=== PATIENT | male | born 1945 | race American Indian/Alaskan Native ===

== ENCOUNTER 2017-12-12 06:06 | Observation (INO) | payer MEDICARE ==
[2017-12-07 12:18] LABS: Basophils % (Auto) 0.7 % (0.0-1.8); Eosinophils % (Auto) 0.4 % (0.0-4.3); Hemoglobin 14.2 gm/dl (11.8-15.2); Lymphocytes # (Auto) 1.3 K/mm3 (1.2-5.4); Lymphocytes % (Auto) 24.4 % (13.4-35.0); Mean Corpuscular HGB Conc 34 % (32-34); Mean Corpuscular Hemoglobin 31 pg (28-32); Mean Corpuscular Volume 90 fl (84-94); Monocytes # (Auto) 0.5 K/mm3 (0.0-0.8); Monocytes % (Auto) 8.8 % (0.0-7.3); Platelet Count 196 K/mm3 (140-440); Red Blood Count 4.66 M/mm3 (3.65-5.03); Red Cell Distribution Width 13.6 % (13.2-15.2)
[2017-12-07 12:28] LABS: INR 0.94 (0.87-1.13)
[2017-12-07 12:29] LABS: Partial Thromboplastin Time 28.7 Sec. (24.2-36.6)
[2017-12-07 12:44] LABS: Alanine Aminotransferase 49 units/L (7-56); Albumin 4.3 g/dL (3.9-5); BUN/Creatinine Ratio 20; Blood Urea Nitrogen 18 mg/dL (9-20); Calcium 9.7 mg/dL (8.4-10.2); Hemolysis Index 7
[2017-12-12] MEDS ORDERED: NACL BACTERIOSTATIC INFILTRATI ONE (06:47)
[2017-12-12] MEDS ORDERED: ANCEF/STERILE WATER 2 GM/20 ML IV NR (07:00)
--- NOTE | 2017-12-12 07:14 | Anesthesia Consultation ---
Anesthesia Consult and Med Hx Date of service: 12/12/17 - Airway Anesthetic Teeth Evaluation: Partials ROM Head & Neck: Adequate Mental/Hyoid Distance: Adequate Mallampati Class: Class II Intubation Access Assessment: Probably Good - Pulmonary Exam CTA: Yes - Cardiac Exam Cardiac Exam: RRR - Pre-Operative Health Status ASA Pre-Surgery Classification: ASA3 Proposed Anesthetic Plan: General - Pulmonary Hx Smoking: Yes (STOPPED 1978) Hx Sleep Apnea: No (DEBBIE PRE SCREEN HIGH RISK) - Cardiovascular System Hx Hypertension: Yes (X 5 YRS) - Other Systems Hx Cancer: Yes (prostrate cancer) - Additional Comments Anesthesia Medical History Comments: Informed consent obtained
--- NOTE | 2017-12-12 07:14 | Anesthesia Day of Surgery ---
Anesthesia Day of Surgery - Day of Surgery Patient Examined: Yes Patient H&P Reviewed: Yes Patient is NPO: Yes
[2017-12-12] MEDS ORDERED: MARCAINE 0.5% 30 ML INFILTRATI ONE (07:21)
[2017-12-12] MEDS ORDERED: SUBLIMAZE IV NR (07:21)
[2017-12-12] MEDS ORDERED: DECADRON ONE (07:21)
[2017-12-12] MEDS ORDERED: XYLOCAINE 1% 20 mL ONE (07:22)
[2017-12-12] MEDS ORDERED: METHYLENE BLUE ONE (07:26)
[2017-12-12] MEDS ORDERED: CALCIUM CHLORIDE IV ONE ×2 (07:34→10:36)
[2017-12-12] MEDS ORDERED: ACD-A 500 ML IV ONE (07:34)
[2017-12-12] MEDS ORDERED: THROMBIN (BOVINE) TP ONE ×2 (07:35→10:36)
[2017-12-12] MEDS ORDERED: ZEMURON IV ONE (07:37)
[2017-12-12] MEDS ORDERED: DIPRIVAN 10 MG/ML IV ONE (07:37)
[2017-12-12] MEDS ORDERED: XYLOCAINE MPF 2% ONE (07:37)
[2017-12-12] MEDS ORDERED: DILAUDID ONE ×2 (07:38→11:36)
[2017-12-12] MEDS ORDERED: PEPCID IV NR (08:00)
[2017-12-12] MEDS ORDERED: NACL 0.9% 1000 ML 1,000 ML IV SCH (08:00)
[2017-12-12] MEDS ORDERED: ePHEDrine SULFATE ONE ×2 (08:44→09:54)
[2017-12-12] MEDS ORDERED: NACL 0.9% 1000 ML 1,000 ML ONE ×3 (09:03→11:39)
[2017-12-12] MEDS ORDERED: ZOFRAN ONE (10:07)
[2017-12-12] MEDS ORDERED: ROBINUL ONE (10:08)
[2017-12-12] MEDS ORDERED: BLOXIVERZ ONE (10:08)
[2017-12-12] MEDS ORDERED: NACL 0.9% IR ONE (10:36)
[2017-12-12] MEDS ORDERED: WATER FOR IRRIG STERILE IR ONE (10:36)
[2017-12-12] MEDS ORDERED: ACD-A IV ONE (10:36)
[2017-12-12] MEDS ORDERED: NARCAN 0.4 MG/1 ML IV PRN (10:45)
[2017-12-12] MEDS ORDERED: ZOFRAN IV PRN (10:45)
[2017-12-12] MEDS ORDERED: MORPHINE IV PRN (10:45)
[2017-12-12] MEDS ORDERED: AMBIEN PO PRN (10:45)
--- NOTE | 2017-12-12 10:45 | Short Stay Summary ---
Short Stay Documentation Date of service: 12/12/17 - History H&P: obtained from office - Allergies and Medications Current Medications: Allergies No Known Allergies Allergy (Verified 12/05/17 15:55) Home Medications Medication Instructions Recorded Confirmed Last Taken Type Amlodipine Besylate/Benazepril 1 each PO DAILY 12/05/17 12/05/17 12/12/17 05:15 History [Amlodipine-Benazepril 10-20 mg] Ascorbic Acid [Vitamin C] 1,000 mg PO DAILY 12/05/17 12/05/17 1 Week Ago History ~12/05/17 Aspirin [Lo-Dose Aspirin EC] 81 mg PO DAILY 12/05/17 12/05/17 1 Week Ago History ~12/05/17 Cholecalciferol (Vitamin D3) 2,000 unit PO DAILY 12/05/17 12/05/17 1 Week Ago History [Vitamin D3] ~12/05/17 [place]-3/Dha/Epa/Fish Oil [Fish Oil 1 each PO DAILY 12/05/17 12/05/17 1 Week Ago History 1,000 mg Softgel] ~12/05/17 Silodosin [Rapaflo] 8 mg PO DAILY 12/05/17 12/05/17 1 Week Ago History ~12/05/17 Triamterene/Hydrochlorothiazid 1 tab PO DAILY 12/05/17 12/05/17 12/12/17 05:15 History [Triamterene-Hctz 50-25 mg Cap] Active Medications Cefazolin Sodium (Ancef/Sterile Water 2 Gm/20 Ml) 2 gm IV PREOP NR Stop: 12/12/17 23:59 Famotidine (Pepcid) 20 mg IV PREOP NR Stop: 12/12/17 23:59 Last Admin: 12/12/17 07:47 Dose: 20 mg Hydromorphone HCl (Dilaudid) 0.5 mg IV Q10MIN PRN PRN Reason: Pain , Severe (7-10) Stop: 12/12/17 18:00 Sodium Chloride (Nacl 0.9% 1000 Ml) 1,000 mls @ 125 mls/hr IV DIRECT MARTÍNEZ Last Admin: 12/12/17 07:27 Dose: 125 mls/hr - Brief post op/procedure progress note Date of procedure: 12/12/17 Pre-op diagnosis: prostate cancer Post-op diagnosis: same Procedure: robotic prostatectomy Surgeon: CONRAD WEAVER Car Greaser: JENNIFER MACE Estimated blood loss: other (250cc) Pathology: list (prostate) Specimen disposition: to lab Condition: stable - Hospital course Hospital course: cipro,norco,& post op info on chart resting well antionette removed home - Disposition Condition at discharge: Stable Short Stay Discharge Plan Follow up with: NOE HOLLIDAY MD [Primary Care Provider] - 7 Days
[2017-12-12] MEDS ORDERED: ANCEF/NS 1 GM/50 ML 1 GM/50 ML BAG IV SCH (11:00)
[2017-12-12] MEDS: DILAUDID IV PRN ×2 (11:34→11:41)
[2017-12-12] MEDS: ceFAZolin 1 GM in NACL 0.9% 20 ML IV SCH ×2 (15:15→21:48)
--- NOTE | 2017-12-12 15:39 | Post Anesthesia Evaluation ---
- Post Anesthesia Evaluation Patient Participated: Yes Airway Patent: Yes Stable Respiratory Function: Yes Nausea/Vomiting: No Temp > 96.8F: Yes Pain Manageable: Yes Adequeate Hydration: Yes Anesthesia Complications: No
[2017-12-12] MEDS: LACTATED RINGERS 1,000 ML IV SCH (17:42)
--- NOTE | 2017-12-12 20:02 | History and Physical Report ---
History of Present Illness Date of examination: 12/12/17 Date of admission: 12/12/17 10:45 Chief complaint: Chief complaint: Status post robotic prostatectomy Medical management History of present illness: History of present illness: 72-year-old -[place] male with history of hypertension and prostate cancer is status post robotic prostatectomy. Postop patient is doing well. No shortness of breath. No fever. Lying in bed comfortably Past History Past Medical History: cancer, hypertension, other (vitamin D deficiency) Past Surgical History: Other (status post robotic prostatectomy) Social history: lives with family, full code Family history: hypertension Medications and Allergies Allergies Allergy/AdvReac Type Severity Reaction Status Date / Time No Known Allergies Allergy Verified 12/05/17 15:55 Home Medications Medication Instructions Recorded Confirmed Last Taken Type Amlodipine Besylate/Benazepril 1 each PO DAILY 12/05/17 12/05/17 12/12/17 05:15 History [Amlodipine-Benazepril 10-20 mg] Ascorbic Acid [Vitamin C] 1,000 mg PO DAILY 12/05/17 12/05/17 1 Week Ago History ~12/05/17 Aspirin [Lo-Dose Aspirin EC] 81 mg PO DAILY 12/05/17 12/05/17 1 Week Ago History ~12/05/17 Cholecalciferol (Vitamin D3) 2,000 unit PO DAILY 12/05/17 12/05/17 1 Week Ago History [Vitamin D3] ~12/05/17 [place]-3/Dha/Epa/Fish Oil [Fish Oil 1 each PO DAILY 12/05/17 12/05/17 1 Week Ago History 1,000 mg Softgel] ~12/05/17 Silodosin [Rapaflo] 8 mg PO DAILY 12/05/17 12/05/17 1 Week Ago History ~12/05/17 Triamterene/Hydrochlorothiazid 1 tab PO DAILY 12/05/17 12/05/17 12/12/17 05:15 History [Triamterene-Hctz 50-25 mg Cap] Active Meds: Active Medications Acetaminophen/Hydrocodone Bitart ([place] 5/325) 2 each PO Q4H PRN PRN Reason: Pain, Moderate (4-6) Amlodipine Besylate (Norvasc) 10 mg PO DAILY MARTÍNEZ Cefazolin Sodium (Ancef/Sterile Water 2 Gm/20 Ml) 2 gm IV PREOP NR Stop: 12/12/17 23:59 Famotidine (Pepcid) 20 mg IV PREOP NR Stop: 12/12/17 23:59 Last Admin: 12/12/17 07:47 Dose: 20 mg Sodium Chloride (Nacl 0.9% 1000 Ml) 1,000 mls @ 125 mls/hr IV DIRECT MARTÍNEZ Last Admin: 12/12/17 07:27 Dose: 125 mls/hr Lactated Ringer's (Lactated Ringers) 1,000 mls @ 100 mls/hr IV DIRECT MARTÍNEZ Last Admin: 12/12/17 17:42 Dose: 100 mls/hr Cefazolin Sodium 1 gm/ Sodium (Chloride) 20 mls @ 2 mls/min IV Q8HR MARTÍNEZ Stop: 12/12/17 22:09 Last Admin: 12/12/17 15:15 Dose: 2 mls/min Lisinopril (Zestril) 10 mg PO QDAY [facility] Morphine Sulfate (Morphine) 2 mg IV Q4H PRN PRN Reason: Pain, Moderate (4-6) Naloxone HCl (Narcan 0.4 Mg/1 Ml) 0.1 mg IV Q2MIN PRN PRN Reason: Res Rate </= 8 or 02 SAT < 92% Ondansetron HCl (Zofran) 4 mg IV Q8H PRN PRN Reason: Nausea And Vomiting Triamterene/HCTZ (Maxzide-25) 1 each PO QAM MARTÍNEZ Zolpidem Tartrate (Ambien) 5 mg PO QHS PRN PRN Reason: Sleep Review of Systems All systems: negative Constitutional: no weight loss, no weight gain, no fever, no chills Ears, nose, mouth and throat: no sore throat, no swelling in mouth, no swelling in throat Cardiovascular: no chest pain, no orthopnea, no palpitations, no rapid/ irregular heart beat, no edema Respiratory: no cough, no cough with sputum, no excessive sputum, no hemoptysis , no shortness of breath, no dyspnea on exertion Gastrointestinal: no abdominal pain, no nausea, no vomiting, no diarrhea, no constipation, no change in bowel habits, no hematemesis, no coffee ground emesis Genitourinary Male: no dysuria, no hematuria, no flank pain, no discharge, no urinary frequency, no urinary hesitancy, no nocturia, no incontinence, no erectile dysfunction, no genital pain Rectal: no pain Musculoskeletal: no neck stiffness, no neck pain, no shooting arm pain, no arm numbness/tingling, no low back pain, no shooting leg pain, no leg numbness/ tingling, no redness of joints Integumentary: no rash, no pruritis, no redness, no sores, no wounds, no jaundice, no boils, no blisters Neurological: no seizures, no syncope Psychiatric: no anxiety, no memory loss, no change in sleep habits, no sleep disturbances, no insomnia, no hypersomnia Endocrine: no cold intolerance, no heat intolerance, no polyphagia, no excessive thirst, no polydipsia, no polyuria Hematologic/Lymphatic: no easy bruising, no easy bleeding Allergic/Immunologic: no urticaria, no allergic rhinitis, no wheezing Exam - Physical Exam Narrative exam: Lying in bed comfortably - Constitutional Vitals: Temp Pulse Resp BP Pulse Ox 97.9 F 92 H 18 127/74 95 12/12/17 16:00 12/12/17 16:00 12/12/17 16:00 12/12/17 16:00 12/12/17 16:00 General appearance: Present: no acute distress, well-nourished - EENT Eyes: Present: PERRL ENT: hearing intact, clear oral mucosa - Neck Neck: Present: supple, normal ROM - Respiratory Respiratory effort: normal Respiratory: bilateral: CTA - Cardiovascular Heart Sounds: Present: S1 & S2. Absent: rub, click - Extremities Extremities: no ischemia, pulses intact, pulses symmetrical, No edema Peripheral Pulses: within normal limits - Abdominal General gastrointestinal: Present: soft, non-tender, non-distended, normal bowel sounds Male genitourinary: Present: deferred, normal - Integumentary Integumentary: Present: clear, warm, dry - Musculoskeletal Musculoskeletal: gait normal, strength equal bilaterally - Psychiatric Psychiatric: appropriate mood/affect, intact judgment & insight - Neurologic Neurologic: CNII-XII intact, moves all extremities - Allied Health Allied health notes reviewed: nursing, case management Results - Labs CBC & Chem 7: 12/07/17 11:20 12/07/17 11:20 Labs: Laboratory Last Values WBC 5.2 K/mm3 (4.5-11.0) 12/07/17 11:20 RBC 4.66 M/mm3 (3.65-5.03) 12/07/17 11:20 Hgb 14.2 gm/dl (11.8-15.2) 12/07/17 11:20 Hct 42.0 % (35.5-45.6) 12/07/17 11:20 MCV 90 fl (84-94) 12/07/17 11:20 MCH 31 pg (28-32) 12/07/17 11:20 MCHC 34 % (32-34) 12/07/17 11:20 RDW 13.6 % (13.2-15.2) 12/07/17 11:20 Plt Count 196 K/mm3 (140-440) 12/07/17 11:20 Lymph % (Auto) 24.4 % (13.4-35.0) 12/07/17 11:20 [place] % (Auto) 8.8 % (0.0-7.3) H 12/07/17 11:20 Eos % (Auto) 0.4 % (0.0-4.3) 12/07/17 11:20 Baso % (Auto) 0.7 % (0.0-1.8) 12/07/17 11:20 Lymph # 1.3 K/mm3 (1.2-5.4) 12/07/17 11:20 [place] # 0.5 K/mm3 (0.0-0.8) 12/07/17 11:20 Eos # 0.0 K/mm3 (0.0-0.4) 12/07/17 11:20 Baso # 0.0 K/mm3 (0.0-0.1) 12/07/17 11:20 Seg Neutrophils % 65.7 % (40.0-70.0) 12/07/17 11:20 Seg Neutrophils # 3.4 K/mm3 (1.8-7.7) 12/07/17 11:20 PT 13.0 Sec. (12.2-14.9) 12/07/17 11:20 INR 0.94 (0.87-1.13) 12/07/17 11:20 APTT 28.7 Sec. (24.2-36.6) 12/07/17 11:20 Sodium 143 mmol/L (137-145) 12/07/17 11:20 Potassium 3.3 mmol/L (3.6-5.0) L 12/07/17 11:20 Chloride 104.6 mmol/L (98-107) 12/07/17 11:20 Carbon Dioxide 25 mmol/L (22-30) 12/07/17 11:20 Anion Gap 17 mmol/L 12/07/17 11:20 BUN 18 mg/dL (9-20) 12/07/17 11:20 Creatinine 0.9 mg/dL (0.8-1.5) 12/07/17 11:20 Estimated GFR > 60 ml/min 12/07/17 11:20 BUN/Creatinine Ratio 20 % 12/07/17 11:20 Glucose 128 mg/dL (75-100) H 12/07/17 11:20 Calcium 9.7 mg/dL (8.4-10.2) 12/07/17 11:20 Total Bilirubin 0.40 mg/dL (0.1-1.2) 12/07/17 11:20 AST 37 units/L (5-40) 12/07/17 11:20 ALT 49 units/L (7-56) 12/07/17 11:20 Alkaline Phosphatase 79 units/L (35-129) 12/07/17 11:20 Total Protein 7.5 g/dL (6.3-8.2) 12/07/17 11:20 Albumin 4.3 g/dL (3.9-5) 12/07/17 11:20 Albumin/Globulin Ratio 1.3 % 12/07/17 11:20 Blood Type B POSITIVE 12/12/17 06:55 Antibody Screen Negative 12/12/17 06:55 Assessment and Plan Advance Directives: Yes VTE prophylaxis?: Chemical (full code) Plan of care discussed with patient/family: Yes - Patient Problems (1) Hypertension Current Visit: Yes Status: Chronic Qualifiers: Hypertension type: essential hypertension Qualified Code(s): I10 - Essential (primary) hypertension Plan to address problem: Continue antihypertensives (2) Hypokalemia Current Visit: Yes Status: Acute Plan to address problem: Supplemented (3) Status post prostatectomy Current Visit: Yes Status: Acute Plan to address problem: Postop patient doing well (4) Vitamin D deficiency Current Visit: Yes Status: Acute Plan to address problem: Continue vitamin D (5) DVT prophylaxis Current Visit: Yes Status: Acute Plan to address problem: SCDs only
[2017-12-12] MEDS ORDERED: K-DUR PO ONE (20:06)
[2017-12-12] MEDS: NORCO 5/325 PO PRN (21:45)
[2017-12-13] MEDS: LACTATED RINGERS 1,000 ML IV SCH (03:13)
[2017-12-13 05:50] LABS: Basophils % (Auto) 0.1 % (0.0-1.8); Hematocrit 39.1 % (35.5-45.6); Hemoglobin 13.1 gm/dl (11.8-15.2); Lymphocytes # (Auto) 0.9 K/mm3 (1.2-5.4); Lymphocytes % (Auto) 6.6 % (13.4-35.0); Mean Corpuscular HGB Conc 33 % (32-34); Mean Corpuscular Hemoglobin 31 pg (28-32); Mean Corpuscular Volume 91 fl (84-94); Monocytes # (Auto) 0.8 K/mm3 (0.0-0.8); Monocytes % (Auto) 5.8 % (0.0-7.3); Platelet Count 190 K/mm3 (140-440); Red Blood Count 4.28 M/mm3 (3.65-5.03); Red Cell Distribution Width 13.6 % (13.2-15.2)
[2017-12-13] MEDS: NORCO 5/325 PO PRN (06:02)
[2017-12-13 06:22] LABS: BUN/Creatinine Ratio 18; Blood Urea Nitrogen 16 mg/dL (9-20); Calcium 8.4 mg/dL (8.4-10.2); Hemolysis Index 4
[2017-12-13] MEDS ORDERED: ZESTRIL PO SCH (10:00)
[2017-12-13] MEDS ORDERED: BENAZEPRIL PO SCH (10:00)
[2017-12-13] MEDS ORDERED: MAXZIDE-25 PO SCH (10:00)
[2017-12-13] MEDS ORDERED: TRIAMTERENE PO SCH (10:00)
[2017-12-13] MEDS ORDERED: HYDROCHLOROTHIAZID PO SCH (10:00)
[2017-12-13] MEDS ORDERED: NORVASC PO SCH (10:00)
[2017-12-13] MEDS ORDERED: AMLODIPINE BESYLATE PO SCH (10:00)
[2017-12-13 10:30] VITALS: BP 143/86
--- NOTE | 2017-12-14 00:01 | Operative Report ---
PREOPERATIVE DIAGNOSES: Prostate cancer, [place] 7, PSA 7. POSTOPERATIVE DIAGNOSES: Prostate cancer, [place] 7, PSA 7. PROCEDURE: Robotic-assisted laparoscopic prostatectomy. SURGEON: Oscar Mclean MD SHAKE PACKER: Kenji Hutchinson. ANESTHESIA: General anesthesia. ESTIMATED BLOOD LOSS: 250 mL. FLUIDS: Crystalloid 125 mL of Cell Saver. DRAINS: Carlos Alberto-Parsons drain. COMPLICATIONS: No complications. INDICATIONS: This patient is a 72-year-old gentleman referred by Dr. Mina Fuentes for evaluation of elevated PSA at 7. Dr. Bruce in our group performed transrectal ultrasound and biopsy. His prostate is found to have [place] 7 adenocarcinoma of the prostate. [place]. Risks, benefits, and complications were explained to the patient, his and his daughter. They all agreed to proceed with surgical intervention. DESCRIPTION OF PROCEDURE: The patient was taken to the operative suite, placed in a supine position. After adequate general anesthesia, he was prepped and draped in a sterile fashion. Anderson catheter was placed on the operative field. 1 cm supraumbilical incision was made with the Bovie. Towel clips were placed. Anterior traction performed. Drop test was negative. Opening pressure was 2 cm of water. Insufflation to 15 cm of water was performed without difficulty, 15 cm from the pubic symphysis, cephalad was marked in the midline 9 cm lateral and additional 9 cm lateral were marked and was used for placement of robotic ports. A 10 mm 0-degree lens was placed in the supraumbilical incision. No intraabdominal injury was appreciated. No signs of metastasis. The patient was then placed in exaggerated Trendelenburg position, robotic ports were placed under direct vision without difficulty. 10 mm helper port and a 5 mm helper port on the right side were placed under direct vision. The patient had some adhesions of the sigmoid colon that were taken down without difficulty. Attention was then taken to the posterior aspect of the bladder and prostate. Second arch was scored exposing the seminal vesicles and vas deferens. Dissection to the apex of the prostate was performed without difficulty. Seminal vesicles and vas deferens were dissected out. Vas deferens was transected bilaterally without difficulty. Copious irrigation was performed. Adequate hemostasis achieved. Next, attention was taken to the anterior abdominal wall. The lateral umbilical ligament was scored exposing the pubic rami and across the midline. Bladder flap was dropped without difficulty. Endopelvic fascia was opened bilaterally. Dorsal vein complex was exposed and controlled with 60 mm vascular stapler. Manipulation of the Anderson allowed identification of the bladder neck, which was scored anteriorly and then opened. Anderson catheter could be appreciated. It was deflated, used for anterior traction. Posterior bladder neck was transected. [place] stitch was placed at the 12 o'clock position of the bladder neck using a 2-0 Vicryl stitch. Seminal vesicles and vas deferens were identified. They were retracted anteriorly exposing the lateral pedicles, which were controlled with 45 mm vascular stapler bilaterally. Neurovascular bundle could not be appreciated due to adipose tissue. Dissection to the apex of the prostate was performed. Next, attention was taken to the anterior aspect of the apex of the prostate, which was transected from the distal urethra. Prostate was then placed in the EndoCatch bag. Copious irrigation was performed. Adequate hemostasis achieved. Bladder neck was reconstructed at the 7 o'clock and 5 o'clock positions using 2-0 Vicryl to allow a combination of an 18-[place] Anderson catheter using a double armed V-Loc stitch placed at the 6 o'clock position. The bladder neck corresponding aspect of the urethra running stitch placed bilaterally. A new Anderson catheter was placed without difficulty, 15 mL of sterile water in the balloon. The anastomosis was cinched down and irrigated. No leak, no clots in bladder. The redundant V-Loc stitch was placed in the anterior abdominal wall to aid with continence and then needle was removed. Platelet rich plasma was injected in the anastomosis as well as platelet poor plasma and platelet membrane was placed on the anastomosis. 10 mm Carlos Alberto-Parsons drain was placed at the anastomosis and brought out on the left via the left-sided port, tied into position with 2-0 silk on the skin. Robotic ports were removed. The cart was undocked without difficulty. Prostate was transferred to the supraumbilical incision, which was extended to allow removal and sent for routine pathologic evaluation. Rectus fascia was closed with #1 Vicryl in a [id number] fashion. Skin was closed with 4-0 Monocryl in interrupted fashion and Dermabond. Side port of the Anderson catheter was folded over and tied with 0 silk in interrupted fashion. The patient tolerated the procedure well. Kenji Hutchinson was present throughout the procedure at the bedside to facilitate surgical dissection. He tolerated the procedure well. He will be observed overnight, go home on Cipro and [place] and follow up in the office. JOB# [id number] [facility]/NTS
--- NOTE | 2017-12-14 07:29 | Progress Note ---
Assessment and Plan Assessment and plan: 72-year-old -[place] male with history of hypertension and prostate cancer is status post robotic prostatectomy. Postop patient is doing well. No shortness of breath. No fever. Lying in bed comfortably (1) Hypertension Current Visit: Yes Status: Chronic Qualifiers: Hypertension type: essential hypertension Qualified Code(s): I10 - Essential (primary) hypertension Plan to address problem: Continue antihypertensives (2) Hypokalemia Current Visit: Yes Status: Acute Plan to address problem: Supplemented (3) Status post prostatectomy Current Visit: Yes Status: Acute Plan to address problem: Postop patient doing well (4) Vitamin D deficiency Current Visit: Yes Status: Acute Plan to address problem: Continue vitamin D (5) leukocytosis likely reactive due to recent instrumentation Nevertheless will recommend antibiotics for at least 3-5 days. Cipro is a good choice. (6) DVT prophylaxis Current Visit: Yes Status: Acute Plan to address problem: SCDs only Clinically stable from medical standpoint for discharge follow-up with urology outpatient History Interval history: Patient seen and examined on well postsurgery complications noted. antionette drain draining appropriately. no fever nausea vomiting or diarrhea. tolerating diet. reports gas. Hospitalist Physical - Physical exam Narrative exam: VITAL SIGNS: Reviewed. GENERAL: The patient appeared well nourished and normally developed. Vital signs as documented. HEAD: No signs of head trauma. EYES: Pupils are equal. Extraocular motions intact. EARS: Hearing grossly intact. MOUTH: Oropharynx is normal. NECK: No adenopathy, no JVD. CHEST: Chest with clear breath sounds bilaterally. No wheezes, rales, or rhonchi. CARDIAC: Regular rate and rhythm. S1 and S2, without murmurs, gallops, or rubs. VASCULAR: No Edema. Peripheral pulses normal and equal in all extremities. ABDOMEN: Soft, without detectable tenderness. No sign of distention. No rebound or guarding, and no masses palpated. Bowel Sounds normal. ANTIONETTE drain noted. MUSCULOSKELETAL: Good range of motion of all major joints. Extremities without clubbing, cyanosis or edema. NEUROLOGIC EXAM: Alert and oriented x 3. No focal sensory or strength deficits. Speech normal. Follows commands. PSYCHIATRIC: Mood normal. SKIN: No rash or lesions. - Constitutional Vitals: Temp Pulse Resp BP Pulse Ox 98.4 F 82 17 143/86 100 12/13/17 07:37 12/13/17 10:29 12/13/17 07:37 12/13/17 10:29 12/13/17 09:14 General appearance: Present: no acute distress, well-nourished Results - Labs CBC & Chem 7: 12/13/17 05:10 12/13/17 05:10 Labs: Laboratory Last Values WBC 13.4 K/mm3 (4.5-11.0) H 12/13/17 05:10 RBC 4.28 M/mm3 (3.65-5.03) 12/13/17 05:10 Hgb 13.1 gm/dl (11.8-15.2) 12/13/17 05:10 Hct 39.1 % (35.5-45.6) 12/13/17 05:10 MCV 91 fl (84-94) 12/13/17 05:10 MCH 31 pg (28-32) 12/13/17 05:10 MCHC 33 % (32-34) 12/13/17 05:10 RDW 13.6 % (13.2-15.2) 12/13/17 05:10 Plt Count 190 K/mm3 (140-440) 12/13/17 05:10 Lymph % (Auto) 6.6 % (13.4-35.0) L 12/13/17 05:10 [place] % (Auto) 5.8 % (0.0-7.3) 12/13/17 05:10 Eos % (Auto) 0.0 % (0.0-4.3) 12/13/17 05:10 Baso % (Auto) 0.1 % (0.0-1.8) 12/13/17 05:10 Lymph # 0.9 K/mm3 (1.2-5.4) L 12/13/17 05:10 [place] # 0.8 K/mm3 (0.0-0.8) 12/13/17 05:10 Eos # 0.0 K/mm3 (0.0-0.4) 12/13/17 05:10 Baso # 0.0 K/mm3 (0.0-0.1) 12/13/17 05:10 Seg Neutrophils % 87.5 % (40.0-70.0) H 12/13/17 05:10 Seg Neutrophils # 11.7 K/mm3 (1.8-7.7) H 12/13/17 05:10 PT 13.0 Sec. (12.2-14.9) 12/07/17 11:20 INR 0.94 (0.87-1.13) 12/07/17 11:20 APTT 28.7 Sec. (24.2-36.6) 12/07/17 11:20 Sodium 143 mmol/L (137-145) 12/13/17 05:10 Potassium 3.9 mmol/L (3.6-5.0) 12/13/17 05:10 Chloride 105.2 mmol/L (98-107) 12/13/17 05:10 Carbon Dioxide 23 mmol/L (22-30) 12/13/17 05:10 Anion Gap 19 mmol/L 12/13/17 05:10 BUN 16 mg/dL (9-20) 12/13/17 05:10 Creatinine 0.9 mg/dL (0.8-1.5) 12/13/17 05:10 Estimated GFR > 60 ml/min 12/13/17 05:10 BUN/Creatinine Ratio 18 % 12/13/17 05:10 Glucose 120 mg/dL (75-100) H 12/13/17 05:10 Calcium 8.4 mg/dL (8.4-10.2) 12/13/17 05:10 Total Bilirubin 0.40 mg/dL (0.1-1.2) 12/07/17 11:20 AST 37 units/L (5-40) 12/07/17 11:20 ALT 49 units/L (7-56) 12/07/17 11:20 Alkaline Phosphatase 79 units/L (35-129) 12/07/17 11:20 Total Protein 7.5 g/dL (6.3-8.2) 12/07/17 11:20 Albumin 4.3 g/dL (3.9-5) 12/07/17 11:20 Albumin/Globulin Ratio 1.3 % 12/07/17 11:20 Blood Type B POSITIVE 12/12/17 06:55 Antibody Screen Negative 12/12/17 06:55
== END 2017-12-13 12:30 | disposition home or self-care (01) ==
LOC: OR 06:06 → INTOOBSV 10:45 → 3B-SURG 10:45
PROVIDERS: ADMIT Urology; ATTEND Internal Medicine
DX: C61 Malignant neoplasm of prostate (principal); I10 Essential (primary) hypertension; E87.6 Hypokalemia; E55.9 Vitamin D deficiency, unspecified; D72.829 Elevated white blood cell count, unspecified; Z87.891 Personal history of nicotine dependence
CPT/HCPCS: 36415; 55866; 64450; 80048; 80053; 85025; 85610; 85730; 86850; 86900; 86901; 88309; 96374; 96375; 96376; A4217; G0378; J0690; J1100; J1170; J2405; J2704; J2710; J3010; J7030; J7120; Q9968